=== PATIENT | female | born 1955 | race Caucasian/White ===

== ENCOUNTER 2020-06-21 06:56 | Day surgery (SDC) | payer BC, MEDICARE ==
[2020-06-21] MEDS ORDERED: Midazolam 1 MG/ML 2 ML SDV ONE (07:14)
[2020-06-21] MEDS ORDERED: Rocuronium Bromide 50 MG/5 ML Syringe ONE (07:14)
[2020-06-21] MEDS ORDERED: Ondansetron 4 MG/2 ML SDV ONE (07:14)
[2020-06-21] MEDS ORDERED: Propofol 200 MG/20 ML SDV ONE ×2 (07:14→08:00)
[2020-06-21] MEDS ORDERED: fentaNYL 250 MCG/5 ML SDV ONE (07:15)
[2020-06-21] MEDS: Lactated Ringers 1,000 ML IV SCH ×3 (07:25→21:11)
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
[2020-06-21] MEDS ORDERED: ceFAZolin/Dextrose,Iso-Osmotic 2 GM/50 ML Duplex Bag IV ONE (08:04)
[2020-06-21] MEDS ORDERED: Fluorescein 5 ML Vial ONE (08:37)
[2020-06-21] MEDS ORDERED: Furosemide 40 MG/4 ML VIAL ONE (08:39)
[2020-06-21] MEDS ORDERED: Acetaminophen 1,000 MG in Premix Bag 1 BAG IV ONE (10:18)
[2020-06-21] MEDS ORDERED: Ketorolac 30 MG/ML SDV IVPUSH ONE (10:23)
--- NOTE | 2020-06-21 10:53 | PCM.POSTAN ---
POST ANESTHESIA ASSESSMENT - MENTAL STATUS Mental Status: Alert, Oriented - VITAL SIGNS Vital Signs: Last Vital Signs Temp 37.3 C 06/21/20 07:30 Pulse 54 L 06/21/20 10:45 Resp 14 06/21/20 10:45 BP 116/64 06/21/20 10:45 Pulse Ox 95 06/21/20 10:45 - RESPIRATORY Respiratory Status: Respiratory Rate WNL, Airway Patent, O2 Saturation Stable - CARDIOVASCULAR CV Status: Pulse Rate WNL, Blood Pressure Stable - GASTROINTESTINAL GI Status: No Symptoms - PAIN Pain Score: 0 - POST OP HYDRATION Hydration Status: Adequate & Stable - OBSERVATIONS Free Text/Narrative:: No anesthesia problems
[2020-06-21] MEDS ORDERED: Ondansetron 4 MG/2 ML SDV IVPUSH PRN (10:57)
[2020-06-21] MEDS ORDERED: Acetaminophen/oxyCODONE 325-5 MG Tab PO PRN (10:57)
[2020-06-21] MEDS ORDERED: Morphine 4 MG/ML Syringe IVPUSH PRN (10:57)
[2020-06-21] MEDS ORDERED: Promethazine 25 MG/ML SDV IM PRN (10:57)
--- NOTE | 2020-06-21 11:05 | PCM.OPNOTE ---
- General Post-Op/Procedure Note Date of Surgery/Procedure: 06/21/20 Operative Procedure(s): total vaginal hysterectomy, left oophorectomy and partial salpingectomy, cystoscopy, culdoplasty, anterior and posterior colporrhaphy Findings: Cervix beyond the introitus, 3rd degree cystocele, 3rd rectocele, right ovary adhesed to side wall, not enlarged, left ovary removed, some adhesions of the left tube, partially removed Cystoscopy shows normal bladder mucosa without any evidence of trauma, copious flow of bright green urine from bilateral ureteral orifices after IV fluoroscein. Pre Op Diagnosis: Enlarging uterine fibroid, incomplete uterovginal prolapse. Post-Op Diagnosis: Same Anesthesia Technique: Spinal Primary Surgeon: Kelly Paez Secondary Surgeon: Rajani Choi Anesthesia Provider: Nereyda Parrish Animal Cop: Josy Lopez Pathology: uterus left ovary and portion of tube, vaginal mucosa. Fluid Replacement, Intraop: 1,300 Output, Urine Amount: 200 EBL in mLs: 75 Complications: None Known Condition: Good Free Text/Narrative:: Intake & Output 06/20/20 06/21/20 06/21/20 22:59 06:59 14:59 Intake Total 1900 Output Total 450 Balance 1450
--- NOTE | 2020-06-21 13:00 | OR ---
SURGEON: Kelly Paez M.D. DATE OF PROCEDURE: 06/21/2020 PREOPERATIVE DIAGNOSES: 1. Incomplete uterovaginal prolapse. 2. Enlarging fibroid. POSTOPERATIVE DIAGNOSES: 1. Incomplete uterovaginal prolapse. 2. Enlarging fibroid. PROCEDURES PERFORMED: 1. Total vaginal hysterectomy. 2. Left salpingo-oophorectomy. 3. Culdoplasty. 4. Anterior and posterior colporrhaphy. 5. Cystoscopy. PRIMARY SURGEON: Kelly Paez MD DIRECTOR ACCOUNT MANAGEMENT: Rajani Choi MD ANESTHESIA: General endotracheal. FLUIDS: 1300 mL of crystalloid. ESTIMATED BLOOD LOSS: 75 mL. URINE OUTPUT: 200 mL. FINDINGS: The cervix was beyond the introitus at the beginning of the case. There was a third-degree cystocele, third-degree rectocele. During the procedure, the right ovary was identified, but was fairly densely adhered to the right abdominal wall and was left in situ. The left ovary had some filmy adhesions. I was able to release and remove the ovary and a portion of the tube. On cystoscopy, there was no evidence of any trauma to the bladder mucosa. There was copious flow of bright green urine from bilateral ureteral orifices after IV fluorescein had been given. COMPLICATIONS: None known. DISPOSITION: Stable, to Recovery. BRIEF HISTORY: This is a 64-year-old female. She presents with a complaint of pelvic pressure and uterine prolapse. Ultrasound had been performed. It did show a fibroid. She elected to forego any intervention, and subsequent ultrasound showed enlargement of the fibroid. This, along with the uterine prolapse, cystocele, and rectocele, I did recommend proceeding with a vaginal hysterectomy, anterior and posterior colporrhaphy, possible culdoplasty, possible vaginal vault suspension, and she does desire removal of ovaries if this does not significantly impact the surgery. She has consented for the procedure with risks discussed including bleeding; infection; injury to bowel, bladder, blood vessels, or other organs; risk of thromboembolic event; risk of recurrence of up to 30%, risk of change in sexual function. Understanding all these risks, she does desire to proceed. Additionally, we had waited for her to have a consultation at [facility] regarding memory loss. She was diagnosed with a progressive aphasia, and consideration related to this was to proceed under spinal anesthesia if possible, and certainly, this is congruent with the plan. I discussed with Anesthesia, and they agreed. Therefore, the spinal anesthesia was utilized. DESCRIPTION OF PROCEDURE: With the patient in dorsal lithotomy position, under adequate spinal analgesia with IV sedation, the perineum and vagina were prepped with Betadine and draped in the usual fashion for a vaginal surgery. SCDs were in place. Azar catheter had been placed. An appropriate time-out was held. She had received 2 g of Ancef IV. After documentation of adequate analgesia, the weighted speculum was placed posteriorly, and a right angle retractor was placed anteriorly. The cervix, which was beyond the introitus, was grasped with a Brooks tenaculum, circumscribed using electrocautery. The anterior cul-de-sac was entered sharply. A right-angle retractor was placed in the anterior cul-de-sac. Posterior cul-de-sac was opened sharply, and the Lashay-Auvard speculum was placed posteriorly. The uterosacral ligaments were then clamped with a Hernan clamp, cut, and ligated with a Hrenan ligature of 2-0 Polysorb. The mid broad ligament pedicle was clamped, cut, and ligated in a similar fashion, and the utero-ovarian ligaments were then doubly clamped, cut, and ligated using a free tie followed by a 3-point suture of 2-0 Polysorb. I did inspect the right tube and ovary, and I could not see the ovary, but I could palpate it. It did have some significant adhesions. I then turned my attention to the left tube and ovary. There were some filmy adhesions, but I was able to grasp the left ovary with a Joe clamp, bring it into the field of view, and doubly clamp the infundibulopelvic pedicle, cut and ligate using a free tie followed by a Hernan ligature of 2-0 Polysorb. I did again attempt to remove the right ovary, but the adhesions were fairly dense, and I was concerned about causing bleeding that could lead to a more invasive surgery, and therefore, it was left in situ. All of the pedicles were inspected and were hemostatic. Therefore, the uterosacral ligament pedicles, which had been retained, were ligated to the vaginal apices bilaterally. There was actually good support from the uterosacral ligaments, and therefore, a culdoplasty was performed using the retained ligatures to place pursestring suture in the posterior cul-de-sac and incorporate the opposite uterosacral ligament proceeding from [id number] and then [id number]. These 2 pursestring sutures were then tied in the midline. Attention was then turned to the anterior vagina. The cuff was grasped with Allis clamps. Hydrodissection was performed, and Metzenbaum scissors were used to undermine the vaginal mucosa. The muscularis layer was using sharp and blunt dissection, and the muscularis layer was then reapproximated using multiple interrupted mattress sutures of 2-0 Polysorb. The vaginal mucosa was slightly trimmed, and then closure of the anterior vagina and cuff was performed with a running lock suture of 0 Polysorb. This being completed, the catheter was removed. Cystoscopy was performed after IV fluorescein was given. There was copious flow of bright green urine from bilateral ureteral orifices. There was no evidence of any trauma from the bladder mucosa. Therefore, the bladder was drained, and the catheter was replaced. A right angle retractor was placed anteriorly at the 5 and 7 o'clock. Allis clamps were placed at the introitus. A small V incision was made in the perineum. Hydrodissection was performed beneath the posterior vaginal mucosa. A midline incision was made with Metzenbaum scissors. The muscularis layer was then using sharp and blunt dissection, and the vaginal mucosa was slightly trimmed. The muscularis layer was reapproximated using multiple interrupted mattress sutures of 2-0 Polysorb. The vaginal mucosa was then closed with a running lock suture of 2-0 Polysorb, proceeding to the perineum with a deep running suture of the same down to the apex of the incision. Following this, 3-0 Monocryl was utilized to reapproximate in a running fashion the more superficial perineal tissue followed by a subcuticular suture of the same. The vagina was packed with vaginal packing instilled with a water-based lubricant. Final sponge, needle, and instrument counts were correct. There were no known complications. The patient was transferred to Recovery in good condition. ALVARO SANCHEZ /[id number]
[2020-06-21] MEDS: Ketorolac 15 MG/ML SDV IVPUSH SCH ×2 (17:31→23:26)
[2020-06-21] MEDS: Acetaminophen/oxyCODONE 325-5 MG Tab PO PRN (21:16)
[2020-06-22] MEDS: Ketorolac 15 MG/ML SDV IVPUSH SCH (05:38)
[2020-06-22 06:54] LABS: BLOOD UREA NITROGEN,BUN 9 mg/dL (7.0-18.0); CARBON DIOXIDE,CO2 26.1 mmol/L (21.0-32.0); CHLORIDE,CL 107 mmol/L (98-107); GLUCOSE RANDOM 106 mg/dL (74-106); POTASSIUM,K 3.7 mmol/L (3.5-5.1); SODIUM,NA 141 mmol/L (136-145)
--- NOTE | 2020-06-22 08:38 | PCM.SURGPN ---
- General Info Date of Service: 06/22/20 Date of Surgery/Procedure: 06/21/20 POD#: 1 Post-Op Diagnosis: incomplete uterovaginal prolapse, fibroid Functional Status: Reports: Pain Controlled, Tolerating Diet, Ambulating, Urinating - Review of Systems General: Reports: No Symptoms HEENT: Reports: Headaches (mild (has not had coffee)) Pulmonary: Reports: No Symptoms Cardiovascular: Reports: No Symptoms Gastrointestinal: Reports: No Symptoms Genitourinary: Reports: No Symptoms Musculoskeletal: Reports: No Symptoms Skin: Reports: No Symptoms Neurological: Reports: No Symptoms Psychiatric: Reports: No Symptoms - Patient Data Vitals - Most Recent: Last Vital Signs Temp 36.6 C 06/22/20 05:00 Pulse 78 06/22/20 05:00 Resp 16 06/22/20 05:00 BP 129/72 06/22/20 05:00 Pulse Ox 96 06/22/20 05:00 Weight - Most Recent: 77.111 kg I&O - Last 24 Hours: Intake & Output 06/21/20 06/22/20 06/22/20 22:59 06:59 14:59 Intake Total 240 1050 Output Total 380 1300 Balance -140 -250 Lab Results Last 24 Hrs: Laboratory Results - last 24 hr 06/22/20 06/22/20 Range/Units 05:40 05:40 WBC 14.11 H (4.0-11.0) K/uL RBC 3.75 L (4.30-5.90) M/uL Hgb 11.6 L (12.0-16.0) g/dL Hct 35.2 L (36.0-46.0) % MCV 93.9 (80.0-98.0) fL MCH 30.9 (27.0-32.0) pg MCHC 33.0 (31.0-37.0) g/dL RDW Std Deviation 40.5 (28.0-62.0) fl RDW Coeff of [place] 12 (11.0-15.0) % Plt Count 226 (150-400) K/uL MPV 10.30 (7.40-12.00) fL Neut % (Auto) 67.8 (48.0-80.0) % Lymph % (Auto) 20.4 (16.0-40.0) % Davis % (Auto) 10.6 (0.0-15.0) % Eos % (Auto) 1.1 (0.0-7.0) % Baso % (Auto) 0.1 (0.0-1.5) % Neut # (Auto) 9.6 H (1.4-5.7) K/uL Lymph # (Auto) 2.9 H (0.6-2.4) K/uL Davis # (Auto) 1.5 H (0.0-0.8) K/uL Eos # (Auto) 0.2 (0.0-0.7) K/uL Baso # (Auto) 0.0 (0.0-0.1) K/uL Sodium 141 (136-145) mmol/L Potassium 3.7 (3.5-5.1) mmol/L Chloride 107 (98-107) mmol/L Carbon Dioxide 26.1 (21.0-32.0) mmol/L BUN 9 (7.0-18.0) mg/dL Creatinine 0.7 (0.6-1.0) mg/dL Est Cr Clr Drug Dosing 68.27 mL/min Estimated GFR (MDRD) > 60.0 ml/min Glucose 106 (74-106) mg/dL Calcium 8.2 L (8.5-10.1) mg/dL Med Orders - Current: Current Medications Lactated Ringer's (Ringers, Lactated) 1,000 mls @ 125 mls/hr IV ASDIRECTED ON LICENSE OF [facility] Last Admin: 06/21/20 21:11 Dose: 125 mls/hr Documented by: Ketorolac Tromethamine (Toradol) 15 mg IVPUSH Q6H ON LICENSE OF [facility] Last Admin: 06/22/20 05:38 Dose: 15 mg Documented by: Morphine Sulfate (Morphine) 4 mg IVPUSH Q2H PRN PRN Reason: Pain (severe 7-10) Ondansetron HCl (Zofran) 4 mg IVPUSH Q6H PRN PRN Reason: Nausea/Vomiting Oxycodone/Acetaminophen (Percocet 325-5 Mg) 1 tab PO Q4H PRN PRN Reason: Pain (moderate 4-6) Last Admin: 06/21/20 21:16 Dose: 1 tab Documented by: Oxycodone/Acetaminophen (Percocet 325-5 Mg) 2 tab PO Q4H PRN PRN Reason: Pain (moderate 4-6) Promethazine HCl (Phenergan) 25 mg IM Q6H PRN PRN Reason: Nausea/Vomiting Discontinued Medications Cefazolin Sodium/Dextrose (Ancef) Confirm Administered Dose 2 gm IV .STK-MED ONE Stop: 06/21/20 08:05 Fentanyl (Sublimaze) Confirm Administered Dose 250 mcg .ROUTE .STK-MED ONE Stop: 06/21/20 07:16 Fluorescein Sodium (Ak-Fluor) Confirm Administered Dose 5 ml .ROUTE .STK-MED ONE Stop: 06/21/20 08:38 Furosemide (Lasix) Confirm Administered Dose 40 mg .ROUTE .STK-MED ONE Stop: 06/21/20 08:40 Acetaminophen 1,000 mg/ Premix 100 mls @ 400 mls/hr IV NOW ONE Stop: 06/21/20 10:32 Last Admin: 06/21/20 10:24 Dose: 400 mls/hr Documented by: Acetaminophen (Ofirmev) Confirm Administered Dose 100 mls @ as directed .ROUTE .STK-MED ONE Stop: 06/21/20 10:20 Last Admin: 06/21/20 11:53 Dose: Not Given Documented by: Ketorolac Tromethamine (Toradol) 30 mg IVPUSH ONETIME ONE Stop: 06/21/20 10:24 Last Admin: 06/21/20 10:40 Dose: 30 mg Documented by: Lidocaine HCl (Xylocaine-Mpf 1%) Confirm Administered Dose 5 ml .ROUTE .STK-MED ONE Stop: 06/21/20 07:15 Midazolam HCl (Versed 1 Mg/Ml) Confirm Administered Dose 2 mg .ROUTE .STK-MED ONE Stop: 06/21/20 07:15 Ondansetron HCl (Zofran) Confirm Administered Dose 4 mg .ROUTE .STK-MED ONE Stop: 06/21/20 07:15 Propofol (Diprivan 20 Ml) Confirm Administered Dose 200 mg .ROUTE .STK-MED ONE Stop: 06/21/20 07:15 Propofol (Diprivan 20 Ml) Confirm Administered Dose 200 mg .ROUTE .STK-MED ONE Stop: 06/21/20 08:01 Rocuronium [place] (Rocuronium [place]) Confirm Administered Dose 50 mg .ROUTE .STK-MED ONE Stop: 06/21/20 07:15 - Exam Wound/Incisions: Dressing Dry and Intact (vaginal packing was removed by nurse, scant blood.) General: Alert, Oriented Lungs: Normal Respiratory Effort Extremities: Normal Range of Motion, Non-Tender, No Pedal Edema Skin: Warm, Dry, Intact Psy/Mental Status: Alert Sepsis Event Note - Evaluation Sepsis Screening Result: No Definite Risk - Focused Exam Vital Signs: Vital Signs Temp Pulse Resp BP Pulse Ox 06/22/20 05:00 36.6 C 78 16 129/72 96 06/21/20 23:32 97 18 137/68 92 L - Problem List & Annotations (1) Incomplete uterine prolapse SNOMED Code(s): 90295417555192730 Code(s): N81.2 - INCOMPLETE UTEROVAGINAL PROLAPSE Status: Acute Current Visit: Yes (2) Leiomyoma of body of uterus SNOMED Code(s): 60469919 Code(s): D25.9 - LEIOMYOMA OF UTERUS, UNSPECIFIED Status: Acute Current Visit: Yes - Problem List Review Problem List Initiated/Reviewed/Updated: Yes - My Orders Last 24 Hours: Active Orders 24 hr Category Date Time Status Patient Status [ADT] Routine ADT 06/21/20 10:57 Active Antiembolic Devices [RC] PER UNIT ROUTINE Care 06/21/20 10:58 Active Bradycardia-Neuroaxis [employer] [RC] ROUTINE Care 06/21/20 09:40 Active Hypertension-Neuroaxis [employer] [RC] ROUTINE Care 06/21/20 09:40 Active Hypotension-Neuroaxis [employer] [RC] ROUTINE Care 06/21/20 09:40 Active Notify Provider Intake and Out [RC] ASDIRECTED Care 06/21/20 10:57 Active Notify Provider Vital Signs [RC] ASDIRECTED Care 06/21/20 10:57 Active Oxygen Therapy [RC] ASDIRECTED Care 06/21/20 10:57 Active RT Incentive Spirometry [RC] Q2HWA Care 06/21/20 10:57 Active Up With Assistance [RC] PER UNIT ROUTINE Care 06/21/20 10:57 Active Up ad Lisy [RC] PER UNIT ROUTINE Care 06/21/20 10:57 Active Urinary Catheter Removal [RC] Per Unit Routine Care 06/21/20 10:57 Active Vital Signs [RC] PER UNIT ROUTINE Care 06/21/20 10:57 Active Regular Diet [DIET] Diet 06/21/20 Lunch Active Acetaminophen/oxyCODONE [Percocet 325-5 MG] Med 06/21/20 10:57 Active 1 tab PO Q4H PRN Acetaminophen/oxyCODONE [Percocet 325-5 MG] Med 06/21/20 10:57 Active 2 tab PO Q4H PRN Ketorolac [Toradol] Med 06/21/20 17:00 Active 15 mg IVPUSH Q6H Lactated Ringers [Ringers, Lactated] 1,000 ml Med 06/21/20 07:45 Active IV ASDIRECTED Morphine Med 06/21/20 10:57 Active 4 mg IVPUSH Q2H PRN Ondansetron [Zofran] Med 06/21/20 10:57 Active 4 mg IVPUSH Q6H PRN Promethazine [Phenergan] Med 06/21/20 10:57 Active 25 mg IM Q6H PRN Peripheral IV Discontinue [OM.PC] Routine Oth 06/21/20 10:57 Ordered Remove Vaginal Packing [OM.PC] Per Unit Routine Oth 06/21/20 10:58 Ordered Sequential Compression Device [OM.PC] Per Unit Routine Oth 06/21/20 10:57 Ordered Resuscitation Status Routine Resus Stat 06/21/20 10:57 Ordered Medication Orders Lactated Ringer's (Ringers, Lactated) 1,000 mls @ 125 mls/hr IV ASDIRECTED ON LICENSE OF [facility] Last Admin: 06/21/20 21:11 Dose: 125 mls/hr Documented by: Infusion: 06/21/20 19:29 Dose: 125 mls/hr Documented by: Admin: 06/21/20 11:29 Dose: 125 mls/hr Documented by: Infusion: 06/21/20 11:29 Dose: 125 mls/hr Documented by: Admin: 06/21/20 07:25 Dose: 125 mls/hr Documented by: MIRNA Ketorolac Tromethamine (Toradol) 15 mg IVPUSH Q6H ON LICENSE OF [facility] Last Admin: 06/22/20 05:38 Dose: 15 mg Documented by: Admin: 06/21/20 23:26 Dose: 15 mg Documented by: Admin: 06/21/20 17:31 Dose: 15 mg Documented by: JOAQUIN Morphine Sulfate (Morphine) 4 mg IVPUSH Q2H PRN PRN Reason: Pain (severe 7-10) Ondansetron HCl (Zofran) 4 mg IVPUSH Q6H PRN PRN Reason: Nausea/Vomiting Oxycodone/Acetaminophen (Percocet 325-5 Mg) 1 tab PO Q4H PRN PRN Reason: Pain (moderate 4-6) Last Admin: 06/21/20 21:16 Dose: 1 tab Documented by: GALLO Oxycodone/Acetaminophen (Percocet 325-5 Mg) 2 tab PO Q4H PRN PRN Reason: Pain (moderate 4-6) Promethazine HCl (Phenergan) 25 mg IM Q6H PRN PRN Reason: Nausea/Vomiting - Assessment Assessment (Free Text/Narrative):: POD#1 after TVH, LSO, anterior and posterior colporrhaphy, culdoplasty and cystoscopy. She is tolerating diet, ambulating and has had johns out. She reports mild headache, but generally drinks coffee every am. Otherwise her pain is minimal. - Plan Plan (Free Text/Narrative):: Dismiss to home after voiding. Discussed discharge instructions.
[2020-06-22] MEDS: Acetaminophen/oxyCODONE 325-5 MG Tab PO PRN (10:19)
--- NOTE | 2020-06-22 11:16 | PCM48HPAN ---
Post Anesthesia Note - EVALUATION WITHIN 48HRS OF ANESTHETIC Vital Signs in Normal Range: Yes Patient Participated in Evaluation: Yes Respiratory Function Stable: Yes Airway Patent: Yes Cardiovascular Function Stable: Yes Hydration Status Stable: Yes Pain Control Satisfactory: Yes (Some soreness.) Nausea and Vomiting Control Satisfactory: Yes Mental Status Recovered: Yes Vital Signs: Last Vital Signs Temp 36.6 C 06/22/20 05:00 Pulse 78 06/22/20 05:00 Resp 16 06/22/20 05:00 BP 129/72 06/22/20 05:00 Pulse Ox 96 06/22/20 05:00 - COMMENTS/OBSERVATIONS Free Text/Narrative:: Doing well considering all. Stable.
== END 2020-06-22 10:45 | disposition home or self-care (01) ==
LOC: MW.SDS 06:56 → MW.MS 11:27 → MW.SDS 06-22 10:45
PROVIDERS: ATTEND Obstetrics & Gynecology
DX: D25.1 Intramural leiomyoma of uterus (principal); N72 Inflammatory disease of cervix uteri; N84.0 Polyp of corpus uteri; N81.2 Incomplete uterovaginal prolapse; Z79.899 Other long term (current) drug therapy; Z87.891 Personal history of nicotine dependence
CPT/HCPCS: 36415; 51702; 57265; 58263; 80048; 85025; 86850; 86900; 86901; 88307; A9270; J0131; J0690; J1885; J1940; J2001; J2250; J2704; J3010; J7120; 00944; J2405

== ENCOUNTER 2022-09-06 20:37 | Emergency (ER) | payer BC ==
[2022-09-06] MEDS ORDERED: Ondansetron 4 MG/2 ML SDV IVPUSH ONE (20:44)
[2022-09-06] MEDS ORDERED: Sodium Chloride 0.9% 1,000 ML IV ONE ×3 (20:44→21:42)
[2022-09-06] MEDS ORDERED: Morphine 4 MG/ML Syringe IVPUSH ONE (21:00)
[2022-09-06 21:30] LABS: CARBON DIOXIDE,CO2 22.8 mmol/L (21.0-32.0)
[2022-09-06 21:40] LABS: CORONAVIRUS COVID-19 NAA NEGATIVE (NEGATIVE); INFLUENZA A NAA NEGATIVE (NEGATIVE); INFLUENZA B NAA NEGATIVE (NEGATIVE)
[2022-09-06] MEDS ORDERED: Iopamidol 755 MG/ML 500 ML Multipack Bottle IVPUSH ONE (21:41)
== END 2022-09-06 23:10 | disposition home or self-care (01) ==
LOC: MW.ED 20:37
DX: K52.9 Noninfective gastroenteritis and colitis, unspecified (principal); E03.9 Hypothyroidism, unspecified; Z91.048 Other nonmedicinal substance allergy status; Z79.899 Other long term (current) drug therapy; Z20.822 Contact with and (suspected) exposure to COVID-19
CPT/HCPCS: 0240U; 36415; 74177; 80053; 81003; 83605; 83690; 83735; 84484; 85025; 93005; 96361; 96374; 96375; 99284; J2270; J2405; J7030; Q9967; 93010

== ENCOUNTER 2023-04-16 10:38 | Day surgery (SDC) | payer BC, MEDICARE ==
[~2023-04-16 10:38] MED LIST: Lactated Ringers 1,000 ML IV SCH; propofoL 50 ML ONE
[2023-04-16] MEDS ORDERED: Lidocaine 2% 5 ML SDV ONE (10:44)
[2023-04-16] MEDS ORDERED: fentaNYL 100 MCG/2 ML SDV ONE (10:44)
[2023-04-16] MEDS ORDERED: Famotidine 20 MG/2 ML SDV ONE (11:17)
[2023-04-16] MEDS ORDERED: Metoclopramide 10 MG/2 ML SDV ONE (11:20)
[2023-04-16] MEDS ORDERED: Ondansetron 4 MG/2 ML SDV ONE (11:20)
[2023-04-16] MEDS ORDERED: Glycopyrrolate 0.2 MG/ML SDV ONE (11:27)
[2023-04-16] MEDS ORDERED: Lactated Ringers 1,000 ML IV SCH (11:45)
== END 2023-04-16 12:11 | disposition home or self-care (01) ==
LOC: MW.SDS 10:38
PROVIDERS: ATTEND Surgery
DX: K59.09 Other constipation (principal); F51.04 Psychophysiologic insomnia; F32.A Depression, unspecified; F41.1 Generalized anxiety disorder; K21.9 Gastro-esophageal reflux disease without esophagitis; G47.33 Obstructive sleep apnea (adult) (pediatric); E03.9 Hypothyroidism, unspecified; G43.009 Migraine without aura, not intractable, without status migrainosus; Z79.890 Hormone replacement therapy; Z79.899 Other long term (current) drug therapy; Z87.891 Personal history of nicotine dependence
CPT/HCPCS: 45378; J2405; J2704; J2765; J3010; J3490; J7120; 00811

== ENCOUNTER 2025-04-18 14:09 | Emergency (ER) | payer BC ==
[2025-04-18] MEDS ORDERED: Sodium Chloride 0.9% 2.5 ML Syringe FLUSH PRN (14:35)
[2025-04-18] MEDS ORDERED: Sodium Chloride 0.9% 10 ML Syringe FLUSH PRN (14:35)
[2025-04-18] MEDS: Ketorolac 30 MG/ML SDV IVPUSH ONE (15:37)
[2025-04-18 15:46] LABS: BASOPHILS ABSOLUTE AUTO 0.04 K/uL (0.00-0.20); BASOPHILS PERCENT AUTO 0.6 % (0.0-1.0); EOSINOPHILS ABSOLUTE AUTO 0.04 K/uL (0.00-0.45); EOSINOPHILS PERCENT AUTO 0.6 % (0.0-6.0); IMMATURE GRAN ABSOLUTE AUTO 0.02 K/uL (0.00-0.05); IMMATURE GRAN PERCENT AUTO 0.3 % (0.0-0.4); LYMPHOCYTES ABSOLUTE AUTO 0.43 K/uL (1.00-4.80); LYMPHOCYTES PERCENT AUTO 6.5 % (24.0-44.0); MEAN PLATELET VOLUME 9.4 fL (9.4-12.3); MONOCYTES ABSOLUTE AUTO 0.89 K/uL (0.00-0.80); MONOCYTES PERCENT AUTO 13.4 % (0.0-8.0); NEUTROPHILS ABSOLUTE AUTO 5.21 K/uL (1.80-7.70); NEUTROPHILS PERCENT AUTO 78.6 % (41.0-71.0); NRBC ABSOLUTE 0.00 K/uL (0.00-0.02); NRBC PERCENT 0.0 /100WBC (0.0-0.2); PLATELET COUNT,PLT 222 K/uL (150-400); RED BLOOD CELL COUNT 4.34 M/uL (4.10-5.30); WHITE BLOOD CELL COUNT,WBC 6.63 K/uL (3.9-11.3)
[2025-04-18 16:17] LABS: A/G RATIO 1.1 (0.9-1.6); ALANINE AMINOTRANSFERASE,ALT 35.0 IU/L (14-63); ASPARTATE AMNIOTRANSFERASE,AST 29.0 IU/L (15-37); BILIRUBIN TOTAL 0.4 mg/dL (0.2-1.0); BLOOD UREA NITROGEN,BUN 8.0 mg/dL (7.0-18.0); CARBON DIOXIDE,CO2 25.4 mmol/L (21.0-32.0); CHLORIDE,CL 105.0 mmol/L (98-107); CREATININE 0.8 mg/dL (0.6-1.0); EST CRCL DRUG DOSING (CG) 55.7 mL/min; GLUCOSE RANDOM 108.0 mg/dL (74-106); POTASSIUM,K 3.9 mmol/L (3.5-5.1); PROTEIN TOTAL,TP 6.8 g/dL (6.4-8.2); SODIUM,NA 140.0 mmol/L (136-145)
[2025-04-18 16:20] LABS: ESTIMATED GFR 79.0 mL/min (>60)
[2025-04-18 17:12] LABS: APPEARANCE,URINE CLEAR; GLUCOSE,URINE NEGATIVE (NEGATIVE); OCCULT BLOOD,URINE TRACE-LYSED (NEGATIVE)
[2025-04-18 17:21] LABS: EPITHELIAL CELLS,URINE RARE (NONE-FEW)
== END 2025-04-18 18:13 | disposition home or self-care (01) ==
LOC: MW.ED 14:09
DX: R10.84 Generalized abdominal pain (principal); R51.9 Headache, unspecified; R25.2 Cramp and spasm; Z91.048 Other nonmedicinal substance allergy status; Z91.018 Allergy to other foods; Z79.899 Other long term (current) drug therapy
CPT/HCPCS: 36415; 70450; 74176; 80053; 81001; 83690; 85025; 93970; 96374; 99284; J1885